=== PATIENT | female | born 1990 | race Caucasian/White ===

== ENCOUNTER → 2023-08-24 14:46 | Outpatient (BNVA) | payer OTHER, SELFPAY | PROVIDERS: Visit Provider Family Medicine | DX: R00.2 Palpitations (principal); Z13.1 Encounter for screening for diabetes mellitus; Z86.32 Personal history of gestational diabetes; I10 Essential (primary) hypertension; Z76.89 Persons encountering health services in other specified circumstances | CPT/HCPCS: 93005 ==

== ENCOUNTER → 2023-08-24 15:55 | Outpatient (BNVA) | payer OTHER, SELFPAY | PROVIDERS: Visit Provider Family Medicine | DX: R00.2 Palpitations (principal); I10 Essential (primary) hypertension | CPT/HCPCS: 80053; 80061; 81000; 83036; 83735; 84439; 84443; 84481; 85025 ==